=== PATIENT | female | born 1970 ===

== ENCOUNTER 2017-07-11 08:15 | Outpatient (CLI) | payer OTHER ==
--- NOTE | 2017-07-11 10:26 | Mammography Report ---
Screening mammogram: Routine views are obtained. No recent prior exams for comparison. The is a questionable area of architectural distortion in the upper-outer right breast. There is an ovoid nodular density in the lateral posterior left breast which has no apparent correlation in lateral projection. The remainder the breast pattern is otherwise generally symmetric and unremarkable. CAD used. Impression: Bilateral asymmetries. Recommendation: Compression imaging of both breasts and ultrasound as needed.
== END 2017-07-11 08:16 | disposition home or self-care (01) ==
LOC: SPVWC 08:15
PROVIDERS: ATTEND Family Medicine
DX: Z12.31 Encounter for screening mammogram for malignant neoplasm of breast (principal)
CPT/HCPCS: 77067; G0202

== ENCOUNTER 2017-07-19 13:31 | Outpatient (CLI) | payer OTHER ==
--- NOTE | 2017-07-19 15:04 | Mammography Report ---
BILATERAL DIGITAL DIAGNOSTIC MAMMOGRAM : 07/19/17 13:31:00 CLINICAL: Recalled for bilateral asymmetries. COMPARISON:07/11/17 screening FINDINGS: Bilateral true lateral and spot compression views were performed and demonstrate no persistent asymmetries. IMPRESSION: No mammographic evidence of malignancy. BI-RADS CATEGORY: 2 - - Benign RECOMMENDATION: Routine mammographic screening in one year. ACR BI-RADS MAMMOGRAPHIC CODES: 0 = Needs additional imaging evaluation; 1 = Negative; 2 = Benign; 3 = Probably benign; 4 = Suspicious; 5 = Malignant; 6 = Known biopsy-proven malignancy COMMENT: 1. Dense breast tissue, i.e., adenosis, fibrocystic changes, etc., may obscure an underlying neoplasm. 2. Approximately 10% of cancers are not detected with mammography. 3. A negative mammography report should not delay biopsy if a clinically suspicious mass is present. COMMENT: Patient follow-up letters are generated via our [employer] application.
== END 2017-07-19 13:32 | disposition home or self-care (01) ==
LOC: SPVWC 13:31
PROVIDERS: ATTEND Family Medicine
DX: R92.8 Other abnormal and inconclusive findings on diagnostic imaging of breast (principal)
CPT/HCPCS: 77066; G0204